=== PATIENT | female | born 1970 | race Caucasian/White ===

== ENCOUNTER 2024-06-20 10:55 | Emergency (ER) | payer OTHER, SELFPAY ==
[2024-06-20 10:58] VITALS: PULSE 60; RESP 18; TEMP 36.7; O2SAT 99; BMI 20.1
--- NOTE | 2024-06-20 11:01 | ECG_ITS ---
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 Measurements Intervals [place] Rate: 55 P: 69 TN: 120 QRS: 86 QRSD: 85 T: 79 QT: 429 QTc: 413 Interpretive Statements SINUS BRADYCARDIA No previous ECG available for comparison Electronically Signed On 06-20-2024 18:50:04 [employer] by Raheel Marcial M.D. [email or web address]
[2024-06-20 11:03] VITALS: BP 124/75
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
[2024-06-20 11:24] LABS: Basophils % 0.5 %; Eosinophils # 0.1 10^3/uL (0.0-0.8); Hematocrit 39.2 % (36-47); Lymphocytes # 2.6 10^3/uL (0.8-4.8); Lymphocytes % 31.4 %; Mean Corpuscular HGB Conc 31.9 g/dL (30-55); Mean Corpuscular Hemoglobin 30.1 pg (27-33); Mean Corpuscular Volume 94.5 fl (85-98); Mean Platelet Volume 11.4 fL (7.4-10.4); Monocytes # 0.6 10^3/uL (0.2-0.9); Monocytes % 6.9 %; Neutrophils # 4.89 10^3/uL (1.8-7.7); Neutrophils % 59.6 %; Nucleated Red Blood Cells % 0 %; Platelet Count 245 10^3/cmm (157-399); Red Blood Count 4.15 10^6/uL (3.85-5.65); Red Cell Distribution Width 13.6 % (12.1-15.1); White Blood Count 8.21 10^3/uL (3.29-11.43)
[2024-06-20 11:27] LABS: HCG Qualitative Urine. Negative (Negative)
[2024-06-20 11:37] LABS: Amphetamines Screen Urine Negative (Negative); Barbiturates Screen Urine Negative (Negative); Benzodiazepines Screen Urine Negative (Negative); Cocaine Screen Urine Negative (Negative); Opiate Screen Urine Negative (Negative); PCP Screen Urine Negative (Negative); THC Screen Urine Negative (Negative)
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
[2024-06-20 12:14] LABS: Troponin(5th) Baseline 10 ng/L (0-10)
[2024-06-20 12:17] LABS: Alanine Aminotransferase 10 U/L (0-33); Albumin Level 4.4 g/dL (3.5-5.2); Alcohol Level 219 mg/dL (0-10); Alkaline Phosphatase 109 U/L (35-105); Anion Gap 18.1 (5-19); Aspartate Amino Transferase 19 U/L (0-32); Blood Urea Nitrogen 17 mg/dL (6-20); Calcium 8.9 mg/dL (8.5-10.5); Carbon Dioxide 21 mmol/L (22-29); Chloride 103 mmol/L (98-107); Creatinine Clr Calc Pharmacy 82.6686; Globulin 2.9 g/dL (1.3-4.6); Glomerular Filtration Rate 103.4 mL/min (90-130); Glucose 102 mg/dL (65-115); Lipase 81 U/L (13-60); Osmolality Calculated 288 mOsm/kg (285-295); Potassium 4.1 mmol/L (3.5-5.1); Sodium 138 mmol/L (136-145); Total Bilirubin 0.2 mg/dL (0.15-1.2); Total Protein 7.3 g/dL (6.6-8.7)
[2024-06-20 13:01] VITALS: BP 87/59; PULSE 63; O2SAT 98
[2024-06-20 13:31] VITALS: BP 90/54; PULSE 64; O2SAT 98
[2024-06-20 14:26] LABS: Troponin 5 2HR 9.15 ng/L (0-10)
[2024-06-20 14:27] LABS: Troponin 5 2HR Delta -0.85 ABS# (0-10)
[2024-06-20 14:50] VITALS: BP 118/69; PULSE 65; O2SAT 100
== END 2024-06-20 14:50 | disposition home or self-care (01) ==
PROVIDERS: Emergency Provider Emergency Medicine
DX: F10.129 Alcohol abuse with intoxication, unspecified (principal); Y90.7 Blood alcohol level of 200-239 mg/100 ml; S16.1XXA Strain of muscle, fascia and tendon at neck level, initial encounter; R07.9 Chest pain, unspecified; S00.03XA Contusion of scalp, initial encounter; V89.2XXA Person injured in unspecified motor-vehicle accident, traffic, initial encounter
CPT/HCPCS: 12345; 36415; 70450; 71045; 72125; 80053; 80306; 80307; 81025; 83690; 84484; 85025; 93005; 99285